=== PATIENT | male | born 1965 | race Caucasian/White ===

== ENCOUNTER 2019-10-30 11:39 | Day surgery (SDC) | payer BC, MEDICARE ==
[2019-10-25 10:51] VITALS: BMI 25.0
[~2019-10-30 11:39] MED LIST: LACTATED RINGERS 1,000 ML IV SCH; LIDOCAINE 1% 20 ML VIAL (10MG/ML) FOR IV START INTRADERMA PRN
[2019-10-30 12:13] VITALS: TEMP 98.2
[2019-10-30] MEDS ORDERED: PROPOFOL 10 MG/ML 20 ML VIAL IV ONE (12:37)
[2019-10-30] MEDS ORDERED: GLUCAGON 1 MG/ML VIAL ONE (12:37)
[2019-10-30 13:35] VITALS: PULSE 69
--- NOTE | 2019-10-30 13:35 | P.PCN ---
Date of Procedure: 10/30/19 Description of Procedure: BRIEF HISTORY: Patient is a 53-year-old pleasant male scheduled for an elective colonoscopy as a part of a personal history of colon polyps. Previously attempted colonoscopy aborted secondary to poor prep. Denies any change in bowel habits or blood per rectum. PROCEDURE PERFORMED: Colonoscopy. PREOPERATIVE DIAGNOSIS: Personal history of colon polyps, last colonoscopy aborted due to poor prep. ESTIMATED BLOOD LOSS: Minimal. IV sedation per Anesthesia. PROCEDURE: After informed consent was obtained, the patient, was brought into the endoscopy unit. IV sedation was administered by Anesthesia under continuous monitoring. Digital rectal examination was normal. Initially the Olympus CF-190 flexible video colonoscope was then inserted in the rectum, gradually advanced into the cecum without any difficulty. Careful examination was performed as the scope was gradually being withdrawn. Ileocecal valve and the appendiceal orifice were visualized and appeared normal. Prep was excellent. Mucosa of the cecum, ascending colon, transverse colon, descending colon, sigmoid colon, and rectum appeared normal. A few scattered left colonic diverticula noted. 2 pedunculated descending colon polyps measuring 9 mm and 11 mm in size removed with cold snare polypectomy and retrieved. 3 splenic flexure polyps one measuring 3 mm and removed with cold forcep polypectomy and the remaining tissue measuring 5 mm and 6 mm in size removed with cold snare polypectomy and retrieved. 4 transverse colon polyps measuring in size from 5 mm to 8 mm resected with cold snare polypectomy and retrieved. 2 ascending colon polyps one measuring 4 mm in size and one measuring 10 mm in size removed with cold snare polypectomy. Retroflexion was performed in the rectum and no lesions were seen. The patient tolerated the procedure well. IMPRESSION: 11 colon polyps removed (please see body of report for size, location and technique of removal). Mild left-sided diverticulosis noted. RECOMMENDATIONS: Findings of this examination were discussed with the patient in his . Okay to resume diet. Await pathology from polypectomies. Recommend repeat colonoscopy in one year for high risk colon polyps. Patient will need a 2 day prep at that time.
[2019-10-30 14:06] VITALS: BP 127/86; RESP 20
== END 2019-10-30 14:26 | disposition home or self-care (01) ==
LOC: ORWHC2ENDO 11:39
PROVIDERS: ATTEND Internal Medicine
DX: Z12.11 Encounter for screening for malignant neoplasm of colon (principal); D12.2 Benign neoplasm of ascending colon; D12.3 Benign neoplasm of transverse colon; D12.4 Benign neoplasm of descending colon; K57.30 Diverticulosis of large intestine without perforation or abscess without bleeding; K64.9 Unspecified hemorrhoids; J45.909 Unspecified asthma, uncomplicated; M19.90 Unspecified osteoarthritis, unspecified site; K21.9 Gastro-esophageal reflux disease without esophagitis; Z86.010 Personal history of colon polyps; Z79.899 Other long term (current) drug therapy; Z87.891 Personal history of nicotine dependence; Z98.890 Other specified postprocedural states
CPT/HCPCS: 45380; 45385; J1610; J2704; 88305